=== PATIENT | female | born 1930 | race Caucasian/White ===

== ENCOUNTER → 2017-01-21 | Outpatient (CLI) | payer MEDICARE, OTHER ==
[~2017-01-21] MED LIST: ACETAMINOPHEN325 M1 PO; COZAAR50 MG PO; FLONASE 50 MCG/16 GM NOSE; LASIX40 MG PO; LEVOTHROID (SY25 MCG PO; POTASSIUM CHLO10 MEQ PO
== END | disposition disaster alternative care site (69) ==
LOC: GRAD 01-18 10:00
DX: M25.559 Pain in unspecified hip (principal); M54.5 Low back pain; M54.2 Cervicalgia; R93.8 Abnormal findings on diagnostic imaging of other specified body structures
CPT/HCPCS: A9503

== ENCOUNTER → 2017-02-06 | Day surgery (SDC) | payer MEDICARE, OTHER ==
[~2017-02-06] VITALS: Ht 157.5 cm; Wt 75.2 kg
--- NOTE | ~2017-02-06 | OR ---
PATIENT'S NAME: ARACELIS BOYD [facility] [place] AGE: 87 Y [address] ROOM: [place] [address] LOCATION: [facility] [place] ADMIT DATE: 02/06/2017 OR/Procedure Report DISCHARGE DATE: FAMILY PHYSICIAN: Griffin Cheney MD ATTENDING PHYSICIAN: Roxie Green SURGEON: Tyler Diaz MD MAINTENANCE [employer]ER: DATE OF PROCEDURE: 02/06/2017 PROCEDURE: Bilateral piriformis injection. INDICATION: Piriformis syndrome. REFERRING PHYSICIAN: The patient is referred to me by Dr. Roxie Green. DESCRIPTION OF PROCEDURE: Risks, benefits, and alternatives were explained to the patient. She wished to proceed. We discussed doing the right side, but the patient wished to have both sides done. The patient, after time-out, was in the prone position. The ultrasound was used to visualize the piriformis muscle on the right and then the left side. The area was cleaned with chlorhexidine 2%, and the skin was numbed with about 1.5 mL of 1% lidocaine. Next, using ultrasound guidance, a 22-gauge B-bevel needle was inserted into the piriformis muscle from lateral to medial in plain approach. Then, after negative aspiration, a mixture of 2 mL of 2% lidocaine with 40 mg of Depo-Medrol was injected. This procedure was repeated on the left side. COMPLICATIONS: None. BLOOD LOSS: None. TYLER DIAZ MD JJP/modl /[id number] d: 02/06/172129 t: 02/20/17 1249, OPERATIVE SUMMARY
--- NOTE | 2017-02-06 17:10 | NUR ---
1510 DR YIN IN DOING THE PROCEDURE 1520 PROCEDURE [id number], PT RESTS QUIETLY WITH HEAD OF BED ELEVATED 1545 WATCHES TV, NO C/O 1610 UP AND DRESSED, STATES FEELS GOOD, DENIES ANY C/O PAIN, MOVES EASILY, DENIES ANY NUMBNESS OR TINGLING IN LEGS
== END | disposition disaster alternative care site (69) ==
LOC: GPOC 01-29 13:00 → GSDC 12:37
PROC: 3E0233Z Introduction of Anti-inflammatory into Muscle, Percutaneous Approach (ICD-10-PCS; principal; 2017-02-06)
PROC: 3E023BZ Introduction of Anesthetic Agent into Muscle, Percutaneous Approach (ICD-10-PCS; 2017-02-06)
DX: G57.03 Lesion of sciatic nerve, bilateral lower limbs (principal); E78.00 Pure hypercholesterolemia, unspecified; E53.8 Deficiency of other specified B group vitamins; M54.5 Low back pain; J44.9 Chronic obstructive pulmonary disease, unspecified; I10 Essential (primary) hypertension; M19.90 Unspecified osteoarthritis, unspecified site; M81.0 Age-related osteoporosis without current pathological fracture; Z87.440 Personal history of urinary (tract) infections; Z85.828 Personal history of other malignant neoplasm of skin; Z86.2 Personal history of diseases of the blood and blood-forming organs and certain disorders involving the immune mechanism; Z86.79 Personal history of other diseases of the circulatory system; Z88.8 Allergy status to other drugs, medicaments and biological substances; Z79.899 Other long term (current) drug therapy; Z90.49 Acquired absence of other specified parts of digestive tract; Z98.890 Other specified postprocedural states
CPT/HCPCS: J1030